=== PATIENT | female | born 1975 | race Caucasian/White ===

== ENCOUNTER 2018-06-24 05:38 | Day surgery (SDC) | payer BC ==
[~2018-06-24 05:38] MED LIST: Buffered Lidocaine 0.9% SYRIN* 5 ML/SYR SYRINGE INTRADERM ONE
[2018-06-24] MEDS ORDERED: Midazolam* 1 MG/ML 5 ML VIAL (5 MG) ONE (07:42)
[2018-06-24] MEDS ORDERED: fentaNYL* 50 MCG/ML 2 ML VIAL (100 MCG VIAL) ONE (07:42)
[2018-06-24] MEDS ORDERED: Ondansetron INJ* 2 MG/ML VIAL ONE (07:49)
[2018-06-24] MEDS ORDERED: Propofol* 10 MG/ML 20 ML BTL IV PUSH ONE (07:52)
[2018-06-24] MEDS ORDERED: Ketorolac INJ* 30 MG/ML 1 ML VIAL ONE (08:27)
[2018-06-24] MEDS ORDERED: Naloxone* 0.4 MG/ML 1 ML VIAL IV PRN (08:30)
[2018-06-24] MEDS ORDERED: oxyCODONE/Acetamin 5/325 MG* TAB PO PRN (08:30)
[2018-06-24] MEDS ORDERED: Acetaminophen TAB* 325 MG PO PRN (08:30)
[2018-06-24] MEDS ORDERED: Acetaminophen TAB* 325 MG ONE (09:01)
[2018-06-24] MEDS ORDERED: Chloroprocaine 2%* 20 ML VIAL ONE (09:17)
[2018-06-24 10:31] VITALS: BP 115/74
--- NOTE | 2018-07-01 13:11 | OP ---
OPERATIVE REPORT: DATE OF OPERATION: 06/24/18 DATE OF : 71 SURGEON: Matt Baker MD. DITCH INSPECTOR: None. ANESTHESIA: Spinal. PRE-OP DIAGNOSIS: Menometrorrhagia and endometrial polyps. POST-OP DIAGNOSIS: Menometrorrhagia and endometrial polyps. OPERATIVE PROCEDURE: Hysteroscopic polypectomy, dilation and curettage. ESTIMATED BLOOD LOSS: Minimal, less than 5 cc. SPECIMENS SENT TO PATHOLOGY: Endometrial curettings and endometrial polyp. FLUIDS: She received 1100 cc of IV crystalloid fluid. URINE OUTPUT: Her urine output was 25 cc of clear urine. FINDINGS: Exam under anesthesia reveals normal external genitalia, normal vaginal mucosa and cervix. The uterus sounded to 8 cm in an anteverted position. Hysteroscopically, the endometrium showed a s pat polyp at the entry to the left tubal ostia and there were smaller polyps at the mid posterior u terine wall. DESCRIPTION OF PROCEDURE: The patient was taken to the operating room where she was identified, she was placed on the operating table where a spinal anesthetic was obtained without difficulty. She was then placed in the dorsal lithotomy position, prepped and draped in a normal sterile fashion. Atten tion was then brought on to the patient's perineum where the bladder was catheterized and emptied of clear urine. At this point, a weighted-speculum was inserted into the patient's vagina and cervix wa s identified and grasped with a single-toothed tenaculum. The uterus was then sounded with a sound. At this point, the cervix was then dilated with Hegar dilators, so that a diagnostic hysteroscope ca n be introduced into the cervix. Once hysteroscope was introduced into the cervix and into the uteri ne cavity, findings revealed as noted above. At this point, the diagnostic scope was removed from th e patient's uterus and I then proceeded to introduce a surgical hysteroscope through which a polyp gr asper was introduced and the polyp on the entry to the left tubal ostia was removed as well as smalle r polyps at the posterior uterine wall. This was then followed with a sharp curettage and then a sec ond look with a hysteroscope revealed complete denudation of the endometrial cavity. At this point, the endometrial curettings as well as the polyps removed were sent to pathology and all the instrumen ts were removed from the patient's vagina. Sponge, lap, needle counts were correct x2. She tolerate d the procedure well. She was then transferred to recovery room area in stable condition. [id number]/[facility] #: [id number]
== END 2018-06-24 10:46 | disposition home or self-care (01) ==
LOC: OR 05:38
PROVIDERS: ATTEND Obstetrics & Gynecology
DX: N92.0 Excessive and frequent menstruation with regular cycle (principal); N84.0 Polyp of corpus uteri; I73.00 Raynaud's syndrome without gangrene
CPT/HCPCS: 88305; A9270-GY; J1885; J2250; J2400; J2405; J2704; J3010

== ENCOUNTER 2018-12-02 13:28 | Emergency (ER) | payer BC ==
--- OUTSIDE RECORDS SUMMARY | 2018-12-02 13:35 | XMS REPORT | Continuity of Care Document ---
:1975 External Reference #:[id number] Author Name Malaika Barclay Care Team Providers Name Role Phone Layla Murillo M.D. 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 [employer] Tobacco Use Start: Unknown Never Smoked Cigarettes Smoking Status Reviewed: 11/20/18 Never Smoked Cigarettes ETOH Use Rarely consumes alcohol Tobacco Use Start: Unknown Patient has never smoked Recreational Drug Use Never Used Drugs Exercise Type/Frequency Exercises regularly 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 Baker) Ibuprofen by mouth every 4 Unknown 400mg Tablets to 6 hours as needed Amlodipine Besylate 1 by mouth every Unknown 2.5mg day Tablets Fluocinolone Acetonide topical daily Unknown (rx'd by 0.025% Ointment Tangorin) History Medications Deisy-Be 1 by mouth every day Unknown - 07/20/2018 0.35mg Tablets Micronor Unknown - 11/15/2015 0.35mg Medications Administered in Office Medication SIG Qnty Indications Ordering Provider Date Influenza,Unspecified Unknown 05/13/2014 Injection Immunizations Description No Information Available Vital Signs Date Vital Result Comment 11/20/2018 8:09am Height 66 inches 5'6" Weight 154.75 lb Heart Rate 60 /min BP Systolic 120 mmHg BP Diastolic 70 mmHg Respiratory Rate 12 /min Pain Level 1 BMI (Body Mass Index) 25.0 kg/m2 09/29/2018 2:00pm Height 65.5 inches 5'5.50" Weight 150.25 lb Heart Rate 58 /min BP Systolic 124 mmHg BP Diastolic 84 mmHg Body Temperature 99.0 F O2 % BldC Oximetry 100 % BMI (Body Mass Index) 24.6 kg/m2 07/20/2018 1:51pm Height 65.5 inches 5'5.50" Weight 149.00 lb Heart Rate 63 /min BP Systolic Sitting 120 mmHg BP Diastolic Sitting 80 mmHg Body Temperature 99.3 F O2 % BldC Oximetry 98 % BMI (Body Mass Index) 24.4 kg/m2 11/15/2015 11:14am Height 66 inches 5'6" Weight 138.00 lb Heart Rate 62 /min BP Systolic Sitting 110 mmHg BP Diastolic Sitting 70 mmHg Respiratory Rate 14 /min Pain Level 0 BMI (Body Mass Index) 22.3 kg/m2 Results Test Date Facility Test Result H/L Range Note Laboratory test [facility] TSH (Thyroid Stim 1.01 N 0.34-5.60 finding [address] Horm) mcIU/[place] [address] [phone] Anti-Thyroid [facility] Thyroperoxidase AB 3.53 IU/mL N <9 Antibodies [address] [place] [address] [phone] Thyroglobulin AB 0.3 IU/mL <4.0 Laboratory 10/16/2018 [facility] Free T4 (Free 0.97 N 0.61- 1.12 test finding [address] Thyroxine) ng/[place] [address] [phone] Celiac Panel 07/22/2018 [facility] Tissue <1.[address] Transglutaminase IgA U/[place] [address] Ab [phone] Immunoglobulin A 138 mg/dL 61 - 356 Celiac Interpretation See Comment 2 Lipid Profile 07/22/2018 [facility] Triglycerides 65 mg/dL 3 (Trig/Chol/HDL) [address] [place] [address] [phone] Cholesterol 158 mg/dL 4 HDL Cholesterol 72.8 mg/dL 5 LDL Cholesterol 72 mg/dL 6 Laboratory test 07/22/2018 [facility] TSH (Thyroid 1.85 mcIU/mL N 0.34-5.[address] Stim Horm) [place] [address] [phone] Free T4 (Free Thyroxine) 0.99 ng/dL N 0.61-1.12 T3 Total 114 ng/dL N 87-178 Cardiolipin 11/15/2015 [facility] Phospholipid Ab < 4.0 MPL N 7 Igg/Igm [address] IgM, [place] [address] [phone] Phospholipid Ab IgG 4.9 GPL N 8 Laboratory test 11/15/2015 [facility] Erythrocyte Sed 2 mm/Hr N 0-[address] [place] [address] [phone] Creatine Kinase(CK) 474 U/L High 10-223 TSH (Thyroid Stim Horm) 0.77 ?IU/mL N 0.34-5.60 Vitamin B12 327 pg/mL N 180-914 9 Vitamin D 1,25 11/15/2015 [facility] Vitamin D 23.0 ng/mL Low 30-50 And Vitamin D,[address] Total 25(Oh) [place] [address] [phone] Vitamin D, 1,25 Dihydroxy 62 pg/mL N 18-78 10 Laboratory test 11/15/2015 [facility] Complement C3 83 mg/dL N 75 - 175 [address] [place] [address] [phone] Complement C4 16 mg/dL N 14 - 40 12 Scleroderma AB 11/15/2015 [facility] Scleroderma Ab <0.2 U N 13 (SCL70) [address] [place] [address] [phone] Anca Panel For 11/15/2015 [facility] Myeloperoxidase AB <0.2 U N 14 Vasculitis [address] [place] [address] [phone] Proteinase 3 AB <0.2 U N 15 Laboratory test 11/15/2015 [facility] SM(Kirby) Igg <0.2 U N [address] [place] [address] [phone] U1 BIOLOGY FACULTY MEMBER/SNRNP Igg 11/15/2015 [facility] U1 BIOLOGY FACULTY MEMBER IgG Autoabs <0.2 U N 17 Autoabs [address] [place] [address] [phone] Laboratory test 11/15/2015 [facility] Reference Lab Test See Comment N [address] [place] [address] [phone] 1 REFERENCE VALUE <4.0 (Negative) Test Performed by: [place] [address] 2 Negative serology. Celiac disease unlikely. However, approximately 10% of patients with celiac disease are seronegative. Also, patients who are already adhering to a gluten-free diet may be seronegative. If celiac disease is highly clinically suspected, consider HLA-DQ typing. Test Performed by: [place] [address] 3 Desirable: <150 Borderline High: 150-199 High: 200-499 Very High: >500 4 Desirable: <200 Borderline High: 200-239 High: >239 5 Low: <40 Desirable: 40-60 High: >60 6 Desirable: <100 Near Optimal: 100-129 Borderline High: 130-159 High: 160-189 Very High: >189 7 REFERENCE VALUE <10.0 (Negative) 8 REFERENCE VALUE <10.0 (Negative) Test Performed by: [place] [address] Chairperson Anesthesiology: Salvador oV II, M.D., Ph.D. 9 Normal Range 180 to 914 Indeterminate Range 145 to 180 Deficient Range <145 10 Test Performed by: [place] [address] Chairperson Anesthesiology: Salvador Vo II, M.D., Ph.D. 11 Test Performed by: [place] [address] Chairperson Anesthesiology: Salvador Vo II, M.D., Ph.D. 12 Test Performed by: [place] [address] Chairperson Anesthesiology: Salvador Vo II, M.D., Ph.D. 13 REFERENCE VALUE <1.0 (Negative) Test Performed by: [place] [address] Chairperson Anesthesiology: Salvador Vo II, M.D., Ph.D. 14 REFERENCE VALUE <0.4 (Negative) 15 REFERENCE VALUE <0.4 (Negative) Test Performed by: [place] [address] Chairperson Anesthesiology: Salvador Vo II, M.D., Ph.D. 16 REFERENCE VALUE <1.0 (Negative) Test Performed by: [facility] [place] [address] Chairperson Anesthesiology: Salvador Vo II, M.D., Ph.D. 17 REFERENCE VALUE <1.0 (Negative) Test Performed by: [facility] [place] [address] Chairperson Anesthesiology: Salvador Vo II, M.D., Ph.D. 18 Test Result Flag Unit RefValue DNA Double-Stranded Ab, <12.3 IU/mL IgG, S REFERENCE VALUE <30.0 (Negative) Test Performed by: [place] [address] Chairperson Anesthesiology: Salvador Vo II, M.D., Ph.D. 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
[2018-12-02 14:33] VITALS: BP 139/83
[2018-12-02] MEDS ORDERED: Cephalexin CAP* 500 MG PO ONE (14:58)
[2018-12-02] MEDS ORDERED: Phenazopyridine TAB* 100 MG PO ONE (14:58)
--- NOTE | 2018-12-02 15:04 | UC ---
Complaint Female HPI - HPI Summary HPI Summary: 43 yo female with onset yesterday evening of dysuria /urgency and frequency no f/c no n/v no vag d/c or itch has scant hematuria yesterday - History Of Current Complaint Chief Complaint: UCGU Stated Complaint: Urine ISSUES Time Seen by Provider: 12/02/18 14:54 Hx Obtained From: Patient Hx Last Menstrual Period: BCP Onset/Duration: Gradual Onset Timing: Constant Severity Initially: Mild Severity Currently: Mild Pain Intensity: 3 Pain Scale Used: 0-10 Numeric Aggravating Factor(s): Urination Alleviating Factor(s): Nothing Associated Signs And Symptoms: Negative: Fever, Back Pain, Vaginal Bleeding/ Discharge, Vaginal Discharge, Nausea, Vomiting(# Of Episodes =), Genital Swelling, Genital Blisters, Retained Foregin Body (Specify) Related Hx: Similar Episode/Dx as: - UTI - Allergies/Home Medications Allergies/Adverse Reactions: Allergies Allergy/AdvReac Type Severity Reaction Status Date / Time No Known Allergies Allergy Verified 12/02/18 14:33 Home Medications: Home Medications Levothyroxine TAB* [Synthroid TAB*] 25 mcg PO DAILY 12/02/18 [History Confirmed 12/02/18] PMH/Surg Hx/FS Hx/Imm Hx Previously Healthy: Yes - Surgical History Surgical History: Yes Surgery Procedure, Year, and Place: LAPARASCOPY, 1992, [facility] - Family History Known Family History: Positive: Hypertension - Social History Alcohol Use: Weekly Alcohol Amount: 2-3 Substance Use Type: None Smoking Status (MU): Never Smoked Tobacco Have You Smoked in the Last Year: No Review of Systems All Other Systems Reviewed And Are Negative: Yes Constitutional: Positive: Negative Skin: Positive: Negative Eyes: Positive: Negative ENT: Positive: Negative Respiratory: Positive: Negative Cardiovascular: Positive: Negative Gastrointestinal: Positive: Negative Genitourinary: Positive: Dysuria, Hematuria, Frequency, Urgency. Negative: Vaginal/Penile Burning, Vaginal/Penile Itching, Vaginal/Penile Discharge, Vaginal/Penile Pain, Vaginal/Penile Tenderness, Ulceration/Lesion, Abnormal Bleeding Musculoskeletal: Positive: Negative Neurological: Positive: Negative Psychological: Positive: Negative Physical Exam Triage Information Reviewed: Yes Appearance: Well-Appearing, No Pain Distress, Well-Nourished Vital Signs: Initial Vital Signs Temp 98.4 F 12/02/18 14:27 Pulse 59 12/02/18 14:27 Resp 18 12/02/18 14:27 BP 139/83 12/02/18 14:27 Pulse Ox 100 12/02/18 14:27 Vital Signs Reviewed: Yes Eyes: Positive: Conjunctiva Clear ENT: Positive: Hearing grossly normal. Negative: Nasal congestion, Nasal drainage, Trismus, Muffled voice, Hoarse voice Neck: Positive: Supple, Nontender Respiratory: Positive: Lungs clear, Normal breath sounds, No respiratory distress, No accessory muscle use Cardiovascular: Positive: RRR, No Murmur Abdomen Description: Positive: Nontender, No Organomegaly, Soft. Negative: CVA Tenderness (R), CVA Tenderness (L) Bowel Sounds: Positive: Present Musculoskeletal: Positive: No Edema Neurological: Positive: Alert Psychological Exam: Normal Skin Exam: Normal Complaint Female Dx - Course Course Of Treatment: UA +++ leuks - Differential Dx/Diagnosis Provider Diagnosis: Acute cystitis Discharge - Sign-Out/Discharge Documenting (check all that apply): Patient Departure All imaging exams completed and their final reports reviewed: No Studies - Discharge Plan Condition: Stable Disposition: HOME Referrals: Layla Murillo MD [Primary Care Provider] - If Needed - Billing Disposition and Condition Condition: STABLE Disposition: Home
== END 2018-12-02 15:10 | disposition home or self-care (01) ==
LOC: UCEAST 13:28
DX: N30.01 Acute cystitis with hematuria (principal)
CPT/HCPCS: 81003; 87086; 99212; A9270-GY; G0463

== ENCOUNTER → 2019-03-18 05:47 | Day surgery (SDC) | payer BC ==
[~2019-03-18 05:47] MED LIST changes: +Acetaminophen TAB* 325 MG ONE; +Acetaminophen TAB* 325 MG PO PRN; -Buffered Lidocaine 0.9% SYRIN* 5 ML/SYR SYRINGE INTRADERM ONE; +Buffered Lidocaine 1% SYRIN* 1 ML/SYRINGE INTRADERM ONE; +Chloroprocaine 2%* 20 ML VIAL ONE; +DOXYcycline IV 200 MG in NS 250 mL *Pre-Op OBGYN IVPB ONE; +Dexamethasone IV* 4 MG/ML 1 ML (4 MG) ONE; +DiMENhydriNATE IV* 50 MG/ML VIAL IV PUSH PRN; +Famotidine IV* 10 MG/ML 2 ML (20 mg) ONE; +HYDROcodone/ACETAMIN 5-325 MG* 1 TAB PO PRN; +Ketorolac INJ* 30 MG/ML 1 ML VIAL ONE; +Lactated Ringers 1000 ML Bag* 1,000 ML IV SCH; +Lidocaine 2% PF * 5 ML VIAL ONE; +Midazolam* 1 MG/ML 2 ML VIAL (2 MG) ONE; +Naloxone* 0.4 MG/ML 1 ML VIAL IV PRN; +Ondansetron INJ* 2 MG/ML VIAL IV PRN; +Ondansetron INJ* 2 MG/ML VIAL ONE; +Propofol* 10 MG/ML 20 ML BTL ONE; +diPHENhydraMINE IV* 50 MG/ML 1 ml VIAL (BENADRYL) IV PRN; +fentaNYL* 50 MCG/ML 2 ML VIAL (100 MCG VIAL) IV PRN; +fentaNYL* 50 MCG/ML 2 ML VIAL (100 MCG VIAL) ONE
[2019-03-18 11:10] VITALS: BP 115/68
--- NOTE | 2019-03-19 09:58 | OP ---
OPERATIVE REPORT: DATE OF OPERATION: 03/18/19 - [facility] DATE OF : 71 SURGEON: Matt Baker MD. ANESTHESIOLOGIST: Talon Michael MD. ANESTHESIA: Spinal. PRE-OP DIAGNOSIS: Menometrorrhagia and endometrial polyp on a pelvic ultrasound. POST-OP DIAGNOSIS: Menometrorrhagia and endometrial polyp on a pelvic ultrasound. OPERATIVE PROCEDURE: Hysteroscopic polypectomy and dilation and curettage. ESTIMATED BLOOD LOSS: None. SPECIMEN SENT TO PATHOLOGY: Endometrial curettings and polyp tissue. FLUIDS: She received 1 L of IV crystalloid fluid. Urine output was 100 cc of clear urine. FINDINGS: The patient was noted to have a uterus that sounded to 7 cm in anteverted position. Hysteroscopically she was noted to have a thin, long polypoid lesion at the uterine fundus in the midline. She had 2 smaller polyps at the lateral borders of the uterine cavity. DESCRIPTION OF PROCEDURE: The patient was taken to the operating room where she was identified. She was placed on the operating table where a spinal anesthetic was obtained without difficulty. She was then placed in the dorsal lithotomy position, prepped and draped in normal sterile fashion. Attention was then brought on to the patient's perineum where the urethra was catheterized and drained of clear urine, after which a weighted speculum was inserted into the patient's vagina. The cervix was identified, grasped with a single-tooth tenaculum. Sound was introduced to the cervix and the uterus sounded to 7 cm and was noted to be in an anteverted position. At this point, Hegar dilators were then used to dilate the cervix so that we can introduce a hysteroscope through the cervix and the MyoSure hysteroscope revealed findings in the intrauterine cavity as noted above. After the diagnostic hysteroscope, I then proceeded to remove the polyps with the MyoSure. Once the polyps were removed, all the instruments were removed from the patient's uterus. I then proceeded to perform a sharp curettage. The endometrial curettings were then sent to pathology. All the instruments were then removed from the patient's vagina. Sponge, lap, needle counts were correct x2. She was then transferred to the recovery room area in stable condition. [id number]/[facility] #: [id number] MTDD
== END | disposition home or self-care (01) ==
LOC: OR 05:47
PROVIDERS: ATTEND Obstetrics & Gynecology
DX: N84.0 Polyp of corpus uteri (principal); N92.1 Excessive and frequent menstruation with irregular cycle; I73.00 Raynaud's syndrome without gangrene; L71.9 Rosacea, unspecified; E03.9 Hypothyroidism, unspecified
CPT/HCPCS: 81025; 88305; A9270-GY; J1100; J1885; J2250; J2400; J2405; J2704; J3010

== ENCOUNTER 2023-10-28 05:52 | Observation (INO) ==
[~2023-10-28 05:52] MED LIST changes: -Acetaminophen TAB* 325 MG ONE; -Acetaminophen TAB* 325 MG PO PRN; -Buffered Lidocaine 1% SYRIN* 1 ML/SYRINGE INTRADERM ONE; -Chloroprocaine 2%* 20 ML VIAL ONE; -DOXYcycline IV 200 MG in NS 250 mL *Pre-Op OBGYN IVPB ONE; -Dexamethasone IV* 4 MG/ML 1 ML (4 MG) ONE; -DiMENhydriNATE IV* 50 MG/ML VIAL IV PUSH PRN; -Famotidine IV* 10 MG/ML 2 ML (20 mg) ONE; -HYDROcodone/ACETAMIN 5-325 MG* 1 TAB PO PRN; -Ketorolac INJ* 30 MG/ML 1 ML VIAL ONE; -Lactated Ringers 1000 ML Bag* 1,000 ML IV SCH; -Lidocaine 2% PF * 5 ML VIAL ONE; -Midazolam* 1 MG/ML 2 ML VIAL (2 MG) ONE; +Naloxone 0.4 mg VIAL 0.4 mg/ml 1 ml VIAL IV PRN; -Naloxone* 0.4 MG/ML 1 ML VIAL IV PRN; +Ondansetron 4 mg VIAL 2 MG/ML 2 ml VIAL IV PRN; -Ondansetron INJ* 2 MG/ML VIAL IV PRN; -Ondansetron INJ* 2 MG/ML VIAL ONE; -Propofol* 10 MG/ML 20 ML BTL ONE; -diPHENhydraMINE IV* 50 MG/ML 1 ml VIAL (BENADRYL) IV PRN; +fentaNYL 100 mcg/2 ml 50 MCG/ML VIAL IV PRN; -fentaNYL* 50 MCG/ML 2 ML VIAL (100 MCG VIAL) IV PRN; -fentaNYL* 50 MCG/ML 2 ML VIAL (100 MCG VIAL) ONE
[2023-10-28] MEDS ORDERED: Tranexamic Acid 1 GM/100ML BAG 2,000 MG/200 ML BAG IV ONE (06:03)
[2023-10-28] MEDS ORDERED: ceFAZolin 2 GM PREMIX 2 GM/50 ML BAG ONE (06:04)
[2023-10-28] MEDS ORDERED: Phenylephrine IV 10 MG/ML 1 ml VIAL ONE (06:56)
[2023-10-28] MEDS ORDERED: Lidocaine 2% PF 5 ML VIAL ONE (06:56)
[2023-10-28] MEDS ORDERED: Propofol 10 MG/ML 20 ML BTL ONE ×2 (06:56→09:57)
[2023-10-28] MEDS ORDERED: fentaNYL 100 mcg/2 ml 50 MCG/ML VIAL ONE (07:00)
[2023-10-28] MEDS ORDERED: Midazolam 2 mg/2 ml VIAL 1 mg/ml 2 ml VIAL (2 mg) ONE (07:00)
[2023-10-28] MEDS ORDERED: ROPIVACAINE 5 MG/ML 30 ML BTL (0.5%) ONE (07:12)
[2023-10-28 07:19] LABS: Rapid COVID-19 Molecular Undetected (Undetected)
[2023-10-28] MEDS ORDERED: Ondansetron ODT 4 mg TAB 4 MG TAB PO PRN (08:15)
[2023-10-28] MEDS ORDERED: Lactulose 30 ml UDC PO PRN (08:15)
[2023-10-28] MEDS ORDERED: Morphine 2 MG/ML SYRINGE IV PRN (08:15)
[2023-10-28] MEDS ORDERED: Magnesium Hydroxide LIQ 30 ML UDC PO PRN (08:15)
[2023-10-28] MEDS ORDERED: Ondansetron 4 mg VIAL 2 MG/ML 2 ml VIAL IV PRN (08:15)
[2023-10-28] MEDS: Lactated Ringers 1000 ml BAG 1,000 ML IV SCH (11:57)
[2023-10-28] MEDS: Magnesium Hydroxide LIQ 30 ML UDC PO SCH (11:57)
[2023-10-28] MEDS: Vitamin THERAPEUTIC TAB PO SCH (11:58)
[2023-10-28] MEDS: ceFAZolin 1 GM ADVAN 1 GM in NS 0.9% 50 ML 50 ML IVPB SCH (16:32)
[2023-10-28] MEDS: MEDROXYPR PO SCH (20:31)
[2023-10-28] MEDS: ESTROGENS PO SCH (20:31)
[2023-10-29 06:27] LABS: Hematocrit 34.6 % (35-45); Hemoglobin 11.8 g/dL (11.5-14.3); Mean Platelet Volume 7.5 fL (7.5-11.2); Platelet Count 236 10^3/uL (150-450)
[2023-10-29 06:46] LABS: Calcium 7.9 mg/dL (8.6-10.3); Creatinine, Serum 0.66 mg/dL (0.51-0.95); Potassium 3.9 mmol/L (3.5-5.0); eGFR CKD-EPI 106.8 (>60)
[2023-10-29 10:34] VITALS: BP 101/66
== END 2023-10-29 12:18 | disposition home or self-care (01) ==
LOC: INTOOBSV 05:52 → AA 05:52 → SSU 08:15
PROVIDERS: ADMIT Orthopaedic Surgery Adult Reconstructive Orthopaedic Surgery; ATTEND Orthopaedic Surgery Adult Reconstructive Orthopaedic Surgery